=== PATIENT | male | born 1985 | race American Indian/Alaskan Native ===

== ENCOUNTER 2022-02-17 08:55 | Emergency (ER) | payer OTHER ==
[~2022-02-17] VITALS: Ht 180.3 cm; Wt 100.0 kg
[2022-02-17 12:00] VITALS: BP 125/68
== END 2022-02-17 12:02 | disposition home or self-care (01) ==
LOC: M ED 08:55
DX: S60.041A Contusion of right ring finger without damage to nail, initial encounter (principal); X58.XXXA Exposure to other specified factors, initial encounter; Y92.009 Unspecified place in unspecified non-institutional (private) residence as the place of occurrence of the external cause; Y93.B9 Activity, other involving muscle strengthening exercises; Y99.9 Unspecified external cause status